=== PATIENT | female | born 2000 | race African-American/Black ===

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

== ENCOUNTER 2024-04-28 18:56 | Emergency (ER) | payer MEDICAID ==
[~2024-04-28] VITALS: Ht 157.5 cm; Wt 52.0 kg
[2024-04-28 19:02] VITALS: O2SAT 100
[2024-04-28] MEDS: ACETAMINOPHEN 325MG TABLET PO ONE (21:22)
[2024-04-28 21:40] LABS: BASOPHILS % 0.3 % (0.0-2.0); EOSINOPHILS % 0.7 % (0.0-5.0); HEMATOCRIT. 37.5 % (36.0-48.0); HEMOGLOBIN. 12.6 g/dL (12.0-16.0); LYMPHOCYTES % 22.3 % (20.0-50.0); MEAN CORPUSCULAR HEMOGLOBIN 30.2 pg (28.0-32.0); MEAN CORPUSCULAR HGB CONC 33.6 g/dL (31.0-37.0); MEAN CORPUSCULAR VOLUME 89.8 fL (81.0-99.0); MEAN PLATELET VOLUME 8.5 fl (7.4-10.4); MONOCYTES % 6.2 % (2.0-8.0); NEUTROPHILS % 70.5 % (40.0-76.0); PLATELET 268 x1000/uL (130-400); RED BLOOD CELL COUNT 4.17 mill/uL (4.2-5.4); RED CELL DISTRIBUTION WIDTH 14.7 % (11.6-14.6); WHITE BLOOD COUNT 11.5 x1000/uL (4.5-11.0)
[2024-04-28 21:48] LABS: CARBON DIOXIDE 23 mEq/L (21-32); CHLORIDE 107 mEq/L (98-107); POTASSIUM 3.7 mEq/L (3.5-5.1); SODIUM 136 mEq/L (136-145)
[2024-04-28 21:49] LABS: CALCIUM 9.2 mg/dL (8.7-10.4)
[2024-04-28 21:53] LABS: CREATININE 0.6 mg/dL (0.6-1.0)
[2024-04-28 21:54] LABS: GLUCOSE 90 mg/dL (70-105); UREA NITROGEN BLOOD 6 mg/dL (9-23)
[2024-04-28 21:55] LABS: ALANINE AMINOTRANSFERASE 7 IU/L (10-49); ALBUMIN 4.1 g/dL (3.2-4.8); ASPARTATE AMINOTRANSFERASE 13 IU/L (<34)
[2024-04-28 21:56] LABS: BILIRUBIN TOTAL 0.3 mg/dL (0.1-1.0); PROTEIN TOTAL 6.5 g/dL (6.0-8.3)
[2024-04-28 21:57] LABS: BILIRUBIN DIRECT < 0.1 mg/dL (<=3.0)
[2024-04-28 23:00] LABS: CLARITY URINE CLEAR (CLEAR); COLOR URINE YELLOW (YELLOW); GLUCOSE URINE NEGATIVE (NEGATIVE); KETONES URINE NEGATIVE (NEGATIVE); LEUKOCYTE ESTERASE URINE NEGATIVE (NEGATIVE); NITRITE URINE NEGATIVE (NEGATIVE); OCCULT BLOOD URINE NEGATIVE (NEGATIVE); PH URINE 6.5 (4.5-8.0); PROTEIN URINE NEGATIVE (NEGATIVE)
[2024-04-28 23:11] VITALS: BP 118/69; PULSE 89; RESP 18; TEMP 98.3
[2024-04-28 23:29] LABS: B-HCG QUANTITATIVE 137195 mIU/mL (<3)
== END 2024-04-28 23:13 | disposition home or self-care (01) ==
LOC: ER 18:56
DX: O26.891 Other specified pregnancy related conditions, first trimester (principal); Z3A.11 11 weeks gestation of pregnancy
CPT/HCPCS: 36415; 76801; 80048; 80076; 81003; 84702; 85025; 86850; 86900; 99284

== ENCOUNTER 2024-07-20 19:49 | Emergency (ER) | payer MEDICAID ==
[~2024-07-20] VITALS: Ht 157.5 cm; Wt 59.0 kg
[2024-07-20 19:54] VITALS: O2SAT 100
[2024-07-20 20:40] VITALS: BP 113/60; PULSE 81; RESP 16; TEMP 36.83628; O2SAT 100
== END 2024-07-20 20:35 | disposition left against medical advice (07) ==
LOC: ER 19:49
DX: O46.92 Antepartum hemorrhage, unspecified, second trimester (principal); Z3A.23 23 weeks gestation of pregnancy
CPT/HCPCS: 81025; 99282

== ENCOUNTER 2024-08-21 23:12 | Emergency (ER) | payer MEDICAID, OTHER ==
[~2024-08-21] VITALS: Ht 157.5 cm; Wt 62.1 kg
[2024-08-21 23:26] VITALS: O2SAT 100
[2024-08-21 23:43] VITALS: BP 110/54; PULSE 98; RESP 16; TEMP 98.5; O2SAT 98
== END 2024-08-22 03:32 | disposition home or self-care (01) ==
LOC: ER 23:12
DX: O26.893 Other specified pregnancy related conditions, third trimester (principal); S90.02XA Contusion of left ankle, initial encounter; Z3A.28 28 weeks gestation of pregnancy; W10.8XXA Fall (on) (from) other stairs and steps, initial encounter; Y93.89 Activity, other specified; Y92.89 Other specified places as the place of occurrence of the external cause; Y99.8 Other external cause status
CPT/HCPCS: 73610; 76805; 29515; 99284; Z7610